=== PATIENT | male | born 1950 | race Caucasian/White ===

== ENCOUNTER 2023-01-30 09:18 | Emergency (ER) | payer MEDICARE, OTHER, SELFPAY ==
[2023-01-30 09:19] VITALS: BP 119/64; PULSE 82; RESP 16; TEMP 36.8; O2SAT 96; BMI 35.9
--- NOTE | 2023-01-30 09:21 | NURSING ---
NO OLD EKGS
[2023-01-30 09:48] LABS: Absolute Lymphocyte Count 1.98 X10^3/uL (0.83-4.51); Absolute Neutrophil Count 6.9 X10^3/uL (2.0-7.7); Basophil# 0.03 X10^3/uL; Basophil% 0.3 % (0-1); Eosinophil# 0.03 X10^3/uL; Eosinophils% 0.3 % (0-5); Hematocrit 29.1 % (40-54); Hemoglobin 8.7 g/dL (13.0-16.5); Lymphocyte # 1.98 X10^3/ul (0.83-4.51); Lymphocyte % 19.3 % (19-41); Mean Corp Hgb Conc 29.9 g/dL (32-36); Mean Corpuscular Hgb 27.7 pg (27.0-32.0); Mean Corpuscular Volume 92.7 fL (80-94); Mean Platelet Vol. 9.2 fl (6.2-12.0); Monocyte# 1.25 X10^3/uL; Monocyte% 12.2 % (0-10); NRBC Flagged by Analyzer 0.2 % (0-5); POSITIVE MORPHOLOGY YES; Platelet Count 260 K/mm3 (150-450); RBC Distribution Width CV 19.9 % (11.6-14.6); RBC Distribution Width SD 67.1 fl (35.1-43.9); Red Blood Count 3.14 M/mm3 (4.6-6.2); White Blood Count 10.3 K/mm3 (4.4-11.0)
--- NOTE | 2023-01-30 09:52 | EDS_ITS ---
HPI History of Present Illness Chief Complaint: Syncope Detail of Chief Complaint: Syncopal episode Informant: patient and EMS Onset/Context/Timing Onset: Hours Context: Sudden Onset Timing: Intermittent Quality: Patient was sitting in the waiting room of the [facility] when he pas Location: [facility] waiting room Current Severity: Mild Maximum Severity: Moderate Worsened by: Nothing specific Relieved by: Nothing Associated Symptoms Associated Symptoms: Low blood pressure and detailed in the HPI narrative Narrative Narrative: Patient is a 72-year-old male who has history of colon cancer. His care is through the [facility]. He was at the [facility] when he had a syncopal episode. He had been sitting for some time. He states he felt warm then had feeling of nauseousness lightheadedness and change in vision. He collapsed. Blood pressure was 92 systolic. Heart rate was reportedly 76. He does endorse hard stool not black or maroon stool. He denies nausea or vomiting. He denies headache. He denies change in vision. He denies ocular auditory symptoms. He denies neck pain. He denies paresthesia, anesthesia or motor weakness. He denies chest discomfort, dyspnea, dyspnea on exertion or cough. Patient denies abdominal pain. Patient denies urologic symptoms. Patient denies pain to his extremities after fall. He is not on an Prior similar symptoms: No Recent Illness/Hospitalization: Yes PFSH [facility] Medical History History of open sigmoidectomy Hypertension Kidney disease Metastatic colon cancer to liver Allergy/AdvReac Type Severity Reaction Status Date / Time No Known Allergies Allergy Verified 01/30/23 09:24 Surgical History History of colostomy reversal Social History (Updated 01/30/23 @ 09:[address] Ivan Dhaliwal MD) household members: spouse Smoking Status: Former smoker substance use type: does not use ROS ROS ED Constitutional Constitutional ED: Denies chills, fever(s), subjective, sweats or weight loss Eyes Eyes: Reports change in vision bilateral; Denies blurry vision or diplopia ENT ENT ED: Denies ear pain, rhinorrhea or sore throat Cardiovascular Cardiovascular: Denies chest pain, orthopnea, palpitations or racing heartbeat Respiratory/Chest Respiratory/Chest: Denies cough, dyspnea, dyspnea on exertion or orthopnea Gastrointestinal Gastrointestinal: Reports constipation; Denies abdominal pain, melena, nausea or vomiting Genitourinary Genitourinary ED: Denies dysuria, hematuria or urinary frequency Musculoskeletal Musculoskeletal: Denies arthralgias, back pain or myalgias Integumentary Denies rash Neurologic Neurologic: Denies headache(s), paresthesias or weakness Endocrine Endocrinology: Denies cold intolerance, heat intolerance, polydipsia or polyuria Hematologic/Lymphatic Hematologic/Lymphatic: Reports systems reviewed and no addt'l complaints, except as documented EXAM Physical Exam Const Vital Signs: 01/30/23 09:19 01/30/23 09:24 01/30/23 11:06 Temperature 98.2 F Temperature Source Oral Pulse Rate 82 83 Respiratory Rate 16 18 Respiratory Pattern Normal Blood Pressure 119/64 151/72 H Blood Pressure Mean 82 98 Pulse Ox 96 96 Oxygen Delivery Method Room Air Room Air Positive well nourished, well developed and obese General Appearance ED: well developed and NAD; Negative for cyanotic, diaphoretic or pallor Nutritional Appearance: obese HEENT Reports dry mucous membranes HEENT Narrative: Head is atraumatic normocephalic. Ears normal. Nares patent. No evidence of trauma to the nose. There is no dental trauma. Posterior pharynx unremarkable. Mouth ED: Yes dry mucous membranes Mouth: dry mucous membranes Eyes PERRL and EOMs intact bilaterally General Eye ED: Negative for pale conjunctiva or scleral icterus Neck no lymphadenopathy, supple and no JVD Chest Wall inspection of chest normal and palpation of chest normal Resp normal respiratory effort and clear to auscultation bilaterally Cardio regular rate, regular rhythm, S1 normal heart sound, S2 normal heart sound and no murmurs GI normal to inspection, nondistended, normoactive bowel sounds, non-tender, non- distended and no masses; Negative for hepatosplenomegaly GI Narrative: Well-healed surgical scars noted including scar for colostomy. Palpation: soft Back/Spine no CVA tenderness Back/Spine Narrative: Inspection of the back is normal. Extremity normal to inspection General Extremety ED: Negative for edema or tenderness General Extremity: Negative for edema Neuro oriented x3, CN's II-XII intact bilaterally and no sensory deficits noted Sensorium / Orientation: alert Motor Exam: strength 5/5 throughout Psych mental status grossly normal Skin no rashes or lesions noted, no wounds and skin turgor normal General Skin Exam: Negative for jaundice or pallor MDM MDM MDM Narrative Medical decision making narrative: With history of cancer syncopal sewed and reported dark hard stool will obtain CBC to assess H&H. We will also obtain basic metabolic panel to assess electrolytes, renal function and BUN to creatinine ratio. If this is elevated and patient has anemia which is new need to evaluate for GI bleed. 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 Lab results narrative: H&H is improved from January 27. BUN and creatinine are elevated from January 27. The elevated hemoglobin from baseline may be due to dehydration. BUN to creatinine ratio is 28:1. Labs: Laboratory Results - last 24 hr 01/30/23 01/30/23 09:38 09:38 WBC 10.3 RBC 3.14 L Hgb 8.7 L Hct 29.1 L MCV 92.7 MCH 27.7 MCHC 29.9 L RDW Std Deviation 67.1 H RDW Coeff of Liss 19.9 H Plt Count 260 MPV 9.2 Immature Gran % (Auto) 0.900 Neut % (Auto) 67.0 Lymph % (Auto) 19.3 [place] % (Auto) 12.2 H Eos % (Auto) 0.3 Baso % (Auto) 0.3 Absolute Neuts (auto) 6.9 Absolute Lymphs (auto) 1.98 Nucleated RBC % 0.2 Anisocytosis 1+ Sodium 145 Potassium 4.1 Chloride 110 H Carbon Dioxide 27.0 Anion Gap 8 BUN 55 H Creatinine 1.94 H Estim Creat Clear Calc 29.94 Est GFR (MDRD) Af Amer 44 L Est GFR (MDRD) Non-Af 36 L BUN/Creatinine Ratio 28.4 H Glucose 119 H Calcium 8.7 Treatment and Re-Evaluation :: Call was placed to his oncologist Dr. Jamey Garrett and his primary care physician Dr. Kurt Rodriguez. Neither have called back at the time of this addendum at 1131. The patient physician on-call for Dr. Rodriguez since he is not in the office today called back. He was made aware of patient's history, physical laboratories alts and need for repeat blood work in 3 to 5 days. Discharge Plan Triage Chief Complaint: Syncope ED Provider: Ivan Dhaliwal Dx/Rx/DC Orders Clinical Impression: Syncope and collapse, Acute prerenal azotemia, Orthostatic lightheadedness, Acute on chronic renal insufficiency, Acute hypotension Instructions: ED Hypotension, Orthostatic, ED Renal Insufficiency Primary Care Provider: David Rodriguez Referrals: David Rodriguez MD [Primary Care Provider] - Disposition Disposition: Home, Self Care
[2023-01-30 09:56] LABS: Differential Indicated SCAN CRITERIA MET
[2023-01-30 10:02] LABS: Anion Gap 8 (5-15); BUN 55 mg/dL (7-18); BUN/Creat Ratio 28.4 RATIO (10-20); Calcium,Total 8.7 mg/dL (8.5-10.1); Chloride 110 mmol/L (98-107); Creatinine, Serum 1.94 mg/dL (0.70-1.30); EST Glomerular Filtration Rate 36 mL/min (>60); Est Glom Filt Rate - Afr Amer 44 mL/min (>60); Estimated Creatinine Clearance 29.94 ml/min; Glucose 119 mg/dL (74-106); Potassium 4.1 mmol/L (3.5-5.1); Sodium Level 145 mmol/L (136-145)
[2023-01-30 10:16] LABS: Anisocytosis 1+
[2023-01-30] MEDS: 0.9% Normal Saline 1,000 ML 1000 ML IV (10:59)
[2023-01-30 11:06] VITALS: BP 151/72; PULSE 83; RESP 18; O2SAT 96
--- NOTE | 2023-01-30 11:33 | NURSING ---
DR RIVAS [employer] FOR DR SHAN ATWOOD
--- NOTE | 2023-01-30 11:35 | EDS_ITS ---
HPI History of Present Illness Chief Complaint: Syncope [facility] Medical History History of open sigmoidectomy Hypertension Kidney disease Metastatic colon cancer to liver Allergy/AdvReac Type Severity Reaction Status Date / Time No Known Allergies Allergy Verified 01/30/23 09:24 Surgical History History of colostomy reversal Social History (Updated 01/30/23 @ 09:[address] Ivan Dhaliwal MD) household members: spouse Smoking Status: Former smoker substance use type: does not use EXAM Physical Exam Const Vital Signs: 01/30/23 09:19 01/30/23 09:24 01/30/23 11:06 Temperature 98.2 F Temperature Source Oral Pulse Rate 82 83 Respiratory Rate 16 18 Respiratory Pattern Normal Blood Pressure 119/64 151/72 H Blood Pressure Mean 82 98 Pulse Ox 96 96 Oxygen Delivery Method Room Air Room Air MDM MDM Lab Data Labs: Laboratory Results - last 24 hr 01/30/23 01/30/23 09:38 09:38 WBC 10.3 RBC 3.14 L Hgb 8.7 L Hct 29.1 L MCV 92.7 MCH 27.7 MCHC 29.9 L RDW Std Deviation 67.1 H RDW Coeff of Liss 19.9 H Plt Count 260 MPV 9.2 Immature Gran % (Auto) 0.900 Neut % (Auto) 67.0 Lymph % (Auto) 19.3 [place] % (Auto) 12.2 H Eos % (Auto) 0.3 Baso % (Auto) 0.3 Absolute Neuts (auto) 6.9 Absolute Lymphs (auto) 1.98 Nucleated RBC % 0.2 Anisocytosis 1+ Sodium 145 Potassium 4.1 Chloride 110 H Carbon Dioxide 27.0 Anion Gap 8 BUN 55 H Creatinine 1.94 H Estim Creat Clear Calc 29.94 Est GFR (MDRD) Af Amer 44 L Est GFR (MDRD) Non-Af 36 L BUN/Creatinine Ratio 28.4 H Glucose 119 H Calcium 8.7 EKG Initial EKG: Attestation: I personally reviewed and interpreted this EKG as follows: Interpretation: Sinus Rhythm (Prehospital EKG was interpreted by me as normal. Rate was 80. There is no ischemic changes noted.) Discharge Plan Triage Chief Complaint: Syncope ED Provider: Ivan Dhaliwal Dx/Rx/DC Orders Clinical Impression: Syncope and collapse, Acute prerenal azotemia, Orthostatic lightheadedness, Acute on chronic renal insufficiency, Acute hypotension Instructions: ED Hypotension, Orthostatic, ED Renal Insufficiency Primary Care Provider: David Rodriguez Referrals: David Rodriguez MD [Primary Care Provider] - 3-5 Days Jamey Garrett DO [Med Staff - Active Staff] - Keep Joe appointment Disposition Disposition: Home, Self Care
--- NOTE | 2023-01-30 12:09 | EDS_ITS ---
HPI History of Present Illness Chief Complaint: Syncope [facility] Medical History History of open sigmoidectomy Hypertension Kidney disease Metastatic colon cancer to liver Allergy/AdvReac Type Severity Reaction Status Date / Time No Known Allergies Allergy Verified 01/30/23 09:24 Surgical History History of colostomy reversal Social History (Updated 01/30/23 @ 09:[address] Ivan Dhaliwal MD) household members: spouse Smoking Status: Former smoker substance use type: does not use EXAM Physical Exam Const Vital Signs: 01/30/23 09:19 01/30/23 09:24 01/30/23 11:06 Temperature 98.2 F Temperature Source Oral Pulse Rate 82 83 Respiratory Rate 16 18 Respiratory Pattern Normal Blood Pressure 119/64 151/72 H Blood Pressure Mean 82 98 Pulse Ox 96 96 Oxygen Delivery Method Room Air Room Air MDM MDM Lab Data Labs: Laboratory Results - last 24 hr 01/30/23 01/30/23 09:38 09:38 WBC 10.3 RBC 3.14 L Hgb 8.7 L Hct 29.1 L MCV 92.7 MCH 27.7 MCHC 29.9 L RDW Std Deviation 67.1 H RDW Coeff of Liss 19.9 H Plt Count 260 MPV 9.2 Immature Gran % (Auto) 0.900 Neut % (Auto) 67.0 Lymph % (Auto) 19.3 [place] % (Auto) 12.2 H Eos % (Auto) 0.3 Baso % (Auto) 0.3 Absolute Neuts (auto) 6.9 Absolute Lymphs (auto) 1.98 Nucleated RBC % 0.2 Anisocytosis 1+ Sodium 145 Potassium 4.1 Chloride 110 H Carbon Dioxide 27.0 Anion Gap 8 BUN 55 H Creatinine 1.94 H Estim Creat Clear Calc 29.94 Est GFR (MDRD) Af Amer 44 L Est GFR (MDRD) Non-Af 36 L BUN/Creatinine Ratio 28.4 H Glucose 119 H Calcium 8.7 Discharge Plan Triage Chief Complaint: Syncope ED Provider: Ivan Dhaliwal Dx/Rx/DC Orders Clinical Impression: Syncope and collapse, Acute prerenal azotemia, Orthostatic lightheadedness, Acute on chronic renal insufficiency, Acute hypotension Instructions: ED Hypotension, Orthostatic, ED Renal Insufficiency Primary Care Provider: David Rodriguez Referrals: David Rodriguez MD [Primary Care Provider] - 3-5 Days Jamey Garrett DO [Med Staff - Active Staff] - Keep Joe appointment Disposition Disposition: Home, Self Care
== END 2023-01-30 12:23 | disposition home or self-care (01) ==
PROVIDERS: Emergency Provider Emergency Medicine; PCP Family Medicine; Visit Provider Emergency Medicine
DX: R55 Syncope and collapse (principal); I95.9 Hypotension, unspecified; Z87.891 Personal history of nicotine dependence; I10 Essential (primary) hypertension; N28.9 Disorder of kidney and ureter, unspecified; R79.89 Other specified abnormal findings of blood chemistry; R42 Dizziness and giddiness
CPT/HCPCS: 36591; 80048; 85025; 96360; 99285; J7030; A4216

== ENCOUNTER 2023-04-22 07:54 | Outpatient (CLI) | payer MEDICARE, OTHER, SELFPAY ==
[2023-04-22] MEDS: 0.9% NaCl Peripheral Flush Adult/Peds IV ×4 (08:12→13:35)
[2023-04-22 08:17] VITALS: BP 135/61; PULSE 84; RESP 16; TEMP 36.8; BMI 34.6
[2023-04-22 09:55] VITALS: BP 123/57; PULSE 77; RESP 16; TEMP 36.5
[2023-04-22 10:55] VITALS: BP 144/66; PULSE 76; RESP 16; TEMP 36.5; O2SAT 97
[2023-04-22 11:24] VITALS: BP 146/66; PULSE 75; RESP 16; TEMP 36.6; O2SAT 97
[2023-04-22] MEDS: Furosemide 20 MG/2 ML VIAL IV (11:24)
[2023-04-22 11:42] VITALS: BP 153/68; PULSE 80; RESP 16; TEMP 36.6; O2SAT 98
[2023-04-22 12:42] VITALS: BP 146/68; PULSE 84; RESP 16; TEMP 36.7; O2SAT 96
== END 2023-04-22 07:55 | disposition home or self-care (01) ==
LOC: MEDOUTP 07:55
PROVIDERS: PCP Family Medicine; Referring Provider Internal Medicine Hematology & Oncology; Visit Provider Internal Medicine Hematology & Oncology
DX: N18.9 Chronic kidney disease, unspecified (principal)
CPT/HCPCS: 96374; 36430; 86850; 86900; 86901; 86920; 86922; J7040; P9016; A4216; J1940

== ENCOUNTER 2023-07-16 12:58 | Outpatient (CLI) | payer MEDICARE, OTHER, SELFPAY ==
[2023-07-16 13:27] VITALS: BP 117/61; PULSE 97; RESP 16; TEMP 36.6; O2SAT 96; BMI 35.4
[2023-07-16 13:59] VITALS: BP 114/60; PULSE 91; RESP 16; TEMP 36.4; O2SAT 96
[2023-07-16 14:59] VITALS: BP 123/57; PULSE 83; RESP 16; TEMP 36.3
[2023-07-16 15:38] VITALS: BP 124/58; PULSE 78; RESP 16; TEMP 36.4; O2SAT 94
== END 2023-07-16 12:59 | disposition home or self-care (01) ==
LOC: MEDOUTP 12:59
PROVIDERS: PCP Family Medicine; Referring Provider Internal Medicine Hematology & Oncology; Visit Provider Internal Medicine Hematology & Oncology
DX: D50.0 Iron deficiency anemia secondary to blood loss (chronic) (principal); D64.81 Anemia due to antineoplastic chemotherapy
CPT/HCPCS: 36430; 86850; 86900; 86901; 86920; 86922; J7040; P9016; A4216